=== PATIENT | male | born 1980 | race Caucasian/White ===

== ENCOUNTER 2025-05-06 16:04 | Emergency (ER) | payer OTHER ==
[~2025-05-06] VITALS: Ht 180.3 cm; Wt 113.4 kg
[2025-05-06 16:18] VITALS: BP 114/66; TEMP 98.3
[2025-05-06 17:01] VITALS: O2SAT 98
== END 2025-05-06 17:06 | disposition home or self-care (01) ==
LOC: ER 16:14
DX: H72.92 Unspecified perforation of tympanic membrane, left ear (principal); I10 Essential (primary) hypertension